=== PATIENT | male | born 1935 | race Caucasian/White ===

== ENCOUNTER 2023-02-15 12:27 | Emergency (ER) | payer OTHER ==
[2023-02-15] MEDS ORDERED: NA CHLORIDE 0.9% 1,000 ML ONE (13:05)
[2023-02-15] MEDS ORDERED: ONDANSETRON 4 MG/2 ML VIAL ONE ×2 (13:05→15:14)
[2023-02-15] MEDS ORDERED: MORPHINE 4 MG/ML SYR ONE (13:05)
[2023-02-15 13:15] LABS: Absolute Lymphocytes (CBC) 0.9 K/uL (0.7-4.9); Hematocrit 37.7 % (39.6-49.0); Lymphocytes % 7.4 % (15.3-44.8); MPV 7.2 fL (7.6-11.3); Platelets 308 thou/uL (152-406); RBC Red Blood Cell Count 3.88 M/uL (4.33-5.43)
[2023-02-15 13:34] LABS: Albumin 3.7 g/dL (3.4-5.0); Bilirubin Total 0.7 mg/dL (0.2-1.0); Potassium 3.4 mEq/L (3.5-5.1); Protein, Total 7.8 g/dL (6.4-8.2)
--- NOTE | 2023-02-15 14:02 | RAD REPORT ---
EXAM DESCRIPTION: CT - Abdomen Pelvis W Contrast - 02/15/2023 1:48 pm CLINICAL HISTORY: Abdominal pain COMPARISON: none. TECHNIQUE: Computed axial tomography of the abdomen pelvis was obtained. 100 cc Isovue-300 was admin istered intravenously. Oral contrast was not requested which limits evaluation of bowel and appendix All CT scans are performed using dose optimization technique as appropriate and may include automated exposure control or mA/KV adjustment according to patient size. FINDINGS: Gallstones. The gallbladder wall does not appear significantly thickened. The liver, spleen, pancreas, adrenal and kidneys appear unremarkable. There is no evidence of diverticulitis. Normal appendix. Marked osteoarthritis right hip IMPRESSION: No acute abnormality is displayed.
[2023-02-15 14:42] LABS: Blood Morphology Comment NOT SEEN (NOT SEEN); Platelet Estimate ADEQ; White Blood Cell Scan OK (OK)
[2023-02-15 15:17] LABS: Specific Gravity > 1.030 (1.005-1.030); Urine Bacteria None Seen /HPF (<20); Urine Bilirubin NEGATIVE (Negative); Urine Blood Negative (Negative); Urine Clarity Clear (Clear); Urine Color Light-Yellow (Yellow); Urine Glucose NEGATIVE (Negative); Urine Protein NEGATIVE (Negative); Urine RBC <5 /HPF (None Seen); Urine Urobilinogen Normal (Normal)
--- NOTE | 2023-02-15 15:29 | EDPHYS ---
Physician Documentation [facility] Name: Tyler Colon Age: 87 yrs Sex: Male : 1935 Arrival Date: 02/15/2023 Time: 12:27 Bed 6 Private MD: ED Physician Mir Daniel HPI: 02/15 13:48 This 87 yrs old Male presents to ER via Wheelchair with complaints of Abdominal Pain, rt Vomiting. 13:48 Patient presents to the ED with about 2 hours of generalized abdominal pain, nausea and rt vomiting. Patient states that this is similar to previous episodes of food poisoning. Pain is aching in nature, nonradiating. Denies aggravating or alleviating factors. Patient does state that he occasionally has issues with constipation, does not believe he is constipated currently.. Historical: - Allergies: 12:41 PENICILLINS; mb9 - Home Meds: 12:41 None [Active]; mb9 - PMHx: 12:41 None; mb9 - PSHx: 12:41 None; mb9 - Immunization history:: Adult Immunizations up to date. - Social history:: Smoking status: Patient denies any tobacco usage or history of. - Family history:: not pertinent. ROS: 13:48 Constitutional: Negative for fever, chills, and weight loss, Cardiovascular: Negative rt for chest pain, palpitations, and edema, Respiratory: Negative for shortness of breath, cough, wheezing, and pleuritic chest pain, MS/Extremity: Negative for injury and deformity, Skin: Negative for injury, rash, and discoloration, Neuro: Negative for headache, weakness, numbness, tingling, and seizure, Psych: Negative for depression, anxiety, suicide ideation, homicidal ideation, and hallucinations, 13:48 Abdomen/GI: Positive for abdominal pain, nausea and vomiting, Exam: 13:48 Constitutional: This is a well developed, well nourished patient who is awake, alert, rt and in no acute distress. Head/Face: Normocephalic, atraumatic. Chest/axilla: Normal chest wall appearance and motion. Nontender with no deformity. No lesions are appreciated. Cardiovascular: Regular rate and rhythm with a normal S1 and S2. No gallops, murmurs, or rubs. Normal PMI, no JVD. No pulse deficits. Respiratory: Lungs have equal breath sounds bilaterally, clear to auscultation and percussion. No rales, rhonchi or wheezes noted. No increased work of breathing, no retractions or nasal flaring. Skin: Warm, dry with normal turgor. Normal color with no rashes, no lesions, and no evidence of cellulitis. MS/ Extremity: Pulses equal, no cyanosis. Neurovascular intact. Full, normal range of motion. Neuro: Awake and alert, GCS 15, oriented to person, place, time, and situation. Cranial nerves II-XII grossly intact. Motor strength 5/5 in all extremities. Sensory grossly intact. Cerebellar exam normal. Normal gait. Psych: Awake, alert, with orientation to person, place and time. Behavior, mood, and affect are within normal limits. 13:48 Abdomen/GI: Mild tenderness diffusely without rebound, guarding, distention, Vital Signs: 12:40 BP 126 / 65; Pulse 65; Resp 18; Pulse Ox 100% on R/A; Weight 70.31 kg; Height 5 ft. 11 mb9 in. ; Pain 10/10; 13:14 BP 126 / 65; Pulse 73; Resp 18; Temp 97.6(TE); Pulse Ox 99% on R/A; Pain 9/10; tm6 14:49 BP 117 / 89; Pulse 67; Pulse Ox 97% on R/A; jl7 16:09 BP 118 / 78; Pulse 68; Resp 18; Temp 98; Pulse Ox 99% on R/A; ph 12:40 Body Mass Index 21.62 (70.31 kg, 180.34 cm) mb9 12:40 Pain Scale: Adult mb9 13:14 Pain Scale: Adult tm6 MDM: 12:42 Patient medically screened. rt 15:31 Differential diagnosis: Gastroenteritis, bowel obstruction, appendicitis. Data rt reviewed: vital signs, nurses notes, lab test result(s), radiologic studies. I considered the following discharge prescriptions or medication management in the emergency department Medications were administered in the Emergency Department. See MAR. Independent interpretation of the following test(s) in the Emergency Department CT Scan: My interpretation is No bowel obstruction some interpretation of CT scan images. Test considered but Not performed: Ultrasound Symptoms not consistent with symptomatic cholelithiasis, ultrasound is not getting. Counseling: I had a detailed discussion with the patient and/or guardian regarding the historical points, exam findings, and any diagnostic results supporting the discharge/admit diagnosis, lab results, radiology results, the need for outpatient follow up, to return to the emergency department if symptoms worsen or persist or if there are any questions or concerns that arise at home. Response to treatment: the patient's symptoms have markedly improved after treatment. 02/15 12:47 Order name: CBC with Diff; Complete Time: 15:03 rt 02/15 12:47 Order name: CMP; Complete Time: 13:48 rt 02/15 12:47 Order name: Lipase; Complete Time: 13:48 rt 02/15 12:47 Order name: Urinalysis w/ reflexes; Complete Time: 15:20 rt 02/15 13:36 Order name: CBC Smear Scan; Complete Time: 15:03 EDMS 02/15 12:47 Order name: CT Abd/Pelvis - IV Contrast Only; Complete Time: 14:04 rt 02/15 12:47 Order name: IV Saline Lock; Complete Time: 13:11 rt 02/15 12:47 Order name: Labs collected and sent; Complete Time: 13:11 rt Administered Medications: 13:11 Drug: NS 0.9% IV 1000 ml IV at 1 bolus Per protocol; 1000 mL bolus Route: IV; Rate: 1 ld1 bolus; Site: left antecubital; 15:48 Follow up: Response: No adverse reaction; IV Status: Completed infusion ph 13:11 Drug: Ondansetron IVP 4 mg IVP once; over 2 minutes Route: IVP; Site: left antecubital; ld1 15:48 Follow up: Response: No adverse reaction ph 13:11 Drug: morphine IVP or IV 4 mg IVP once over 4 mins Route: IVP; Infused Over: 4 mins; ld1 Site: left antecubital; 15:48 Follow up: Response: No adverse reaction ph 15:02 Drug: Ondansetron IVP 4 mg IVP once; over 2 minutes Route: IVP; Site: left antecubital; ph 15:47 Follow up: Response: No adverse reaction ph 15:44 Drug: morphine IVP or IV 2 mg IVP once over 4 mins Route: IVP; Infused Over: 4 mins; ph Site: left antecubital; 15:47 Follow up: Response: No adverse reaction ph 15:44 Drug: Dicyclomine IM 20 mg IM once Route: IM; Site: right gluteus; ph Disposition Summary: 02/15/23 15:28 Discharge Ordered Notes: Location: Home rt Problem: new rt Symptoms: have improved rt Condition: Stable rt Diagnosis - Abdominal pain, Generalized rt - Nausea with vomiting, unspecified rt Followup: rt - With: Private Physician - When: 2 - 3 days - Reason: Discharge Instructions: - Discharge Summary Sheet rt - Abdominal Pain, Adult rt - Nausea and Vomiting, Adult rt Forms: - Medication Reconciliation Form rt - Thank You Letter rt - Antibiotic Education rt - Prescription Opioid Use rt - Patient Portal Instructions rt - Leadership Thank You Letter rt Prescriptions: - ondansetron 4 mg Oral Tablet,disintegrating - take 1 tablet ORAL route every 6 hours as needed for nausea; 18 tablet; rt Refills: 0, Product Selection Permitted - Tramadol 50 mg Oral Tablet - take 1 tablet ORAL route every 8 hours as needed; 12 tablet; Refills: 0, rt Product Selection Permitted - dicyclomine 10 mg Oral capsule - take 1 capsule ORAL route 3 times per day; 18 capsule; Refills: 0, Product rt Selection Permitted Signatures: Dispatcher [employer] Marielle Crespo RN RN ph Roxie Anaya RN RN ld1 Adela Norman RN RN mb9 Mir Daniel MD MD rt
--- NOTE | 2023-02-15 15:29 | ER ---
Nurse's Notes [facility] Name: Tyler Colon Age: 87 yrs Sex: Male : 1935 Arrival Date: 02/15/2023 Time: 12:27 Bed 6 Private MD: Diagnosis: Abdominal pain, Generalized;Nausea with vomiting, unspecified Presentation: 02/15 12:40 Chief complaint: Patient states: "I've had abdominal pain all over for the past 2-3 mb9 hours. I've been nauseous and vomiting. I've had pain like this before and it feels like food poisoning or something". Coronavirus screen: Vaccine status: Patient reports receiving the 2nd dose of the covid vaccine. Ebola Screen: No symptoms or risks identified at this time. Initial Sepsis Screen: Does the patient meet any 2 criteria? No. Patient's initial sepsis screen is negative. Does the patient have a suspected source of infection? No. Patient's initial sepsis screen is negative. Risk Assessment: Do you want to hurt yourself or someone else? Patient reports no desire to harm self or others. Onset of symptoms was February 15, 2023. 12:40 Method Of Arrival: Wheelchair mb9 12:40 Acuity: GAVIN 3 mb9 Triage Assessment: 12:41 General: Appears in no apparent distress. Behavior is calm, cooperative. Pain: mb9 Complains of pain in abdomen Pain does not radiate. Pain currently is 10 out of 10 on a pain scale. Quality of pain is described as throbbing, Pain began suddenly, Is continuous. EENT: No signs and/or symptoms were reported regarding the EENT system. Neuro: Seay Agitation-Sedation Scale (RASS): 0 - Alert and Calm Level of Consciousness is awake, alert, obeys commands, Oriented to person, place, time, situation, Appropriate for age. Cardiovascular: Patient's skin is warm and dry. Respiratory: Airway is patent Respiratory effort is even, unlabored, Respiratory pattern is regular, symmetrical. GI: Abdomen is flat, non-distended, Reports nausea, vomiting. : No signs and/or symptoms were reported regarding the genitourinary system. Derm: Skin is pink, warm \\T\\ dry. Historical: - Allergies: 12:41 PENICILLINS; mb9 - Home Meds: 12:41 None [Active]; mb9 - PMHx: 12:41 None; mb9 - PSHx: 12:41 None; mb9 - Immunization history:: Adult Immunizations up to date. - Social history:: Smoking status: Patient denies any tobacco usage or history of. - Family history:: not pertinent. Screenin:34 [facility] ED Fall Risk Assessment (Adult) History of falling in the last 3 months, ph including since admission No falls in past 3 months (0 pts) Confusion or Disorientation No (0 pts) Intoxicated or Sedated No (0 pts) Impaired Gait No (0 pts) Mobility Assist Device Used No (0 pt) Altered Elimination No (0 pt) Score/Fall Risk Level 0 - 2 = Low Risk Oriented to surroundings, Maintained a safe environment, Provided non-skid footwear, Hourly rounding (assess needs \\T\\ fall precautionary measures) done. Abuse screen: Denies threats or abuse. Denies injuries from another. Nutritional screening: No deficits noted. Tuberculosis screening: No symptoms or risk factors identified. Assessment: 13:14 General: Appears in no apparent distress. comfortable, Behavior is calm, cooperative, tm6 appropriate for age. Pain: Complains of pain in abdomen Pain does not radiate. Pain currently is 9 out of 10 on a pain scale. Quality of pain is described as throbbing, Pain began 2 hours ago. Is continuous. Neuro: Level of Consciousness is awake, alert, obeys commands, Oriented to person, place, time, situation. Cardiovascular: Capillary refill < 3 seconds Patient's skin is warm and dry. Respiratory: Airway is patent Respiratory effort is even, unlabored. GI: Abdomen is flat, non-distended, Bowel sounds present X 4 quads. Abd is soft Abdomen is tender to palpation Reports lower abdominal pain, upper abdominal pain, nausea, vomiting. : No signs and/or symptoms were reported regarding the genitourinary system. EENT: No signs and/or symptoms were reported regarding the EENT system. Derm: No signs and/or symptoms reported regarding the dermatologic system. Musculoskeletal: No signs and/or symptoms reported regarding the musculoskeletal system. 14:49 Reassessment: Patient appears in no apparent distress at this time. No changes from jl7 previously documented assessment. Patient and/or family updated on plan of care and expected duration. Pain level reassessed. Patient is alert, oriented x 3, equal unlabored respirations, skin warm/dry/pink. Vital Signs: 12:40 BP 126 / 65; Pulse 65; Resp 18; Pulse Ox 100% on R/A; Weight 70.31 kg; Height 5 ft. 11 mb9 in. ; Pain 10/10; 13:14 BP 126 / 65; Pulse 73; Resp 18; Temp 97.6(TE); Pulse Ox 99% on R/A; Pain 9/10; tm6 14:49 BP 117 / 89; Pulse 67; Pulse Ox 97% on R/A; jl7 16:09 BP 118 / 78; Pulse 68; Resp 18; Temp 98; Pulse Ox 99% on R/A; ph 12:40 Body Mass Index 21.62 (70.31 kg, 180.34 cm) mb9 12:40 Pain Scale: Adult mb9 13:14 Pain Scale: Adult tm6 ED Course: 12:31 Patient arrived in ED. mg5 12:32 Mir Daniel MD is Attending Physician. rt 12:32 Arm band placed on Patient placed in an exam room, on a stretcher. ll1 12:35 Marielle Peng, TIM is Primary Nurse. ph 12:41 Triage completed. mb9 13:11 CBC with Diff Sent. ld1 13:11 CMP Sent. ld1 13:11 Lipase Sent. ld1 13:11 Inserted saline lock: 20 gauge in left antecubital area, using aseptic technique. Blood ld1 collected. 13:14 Patient has correct armband on for positive identification. Placed in gown. Bed in low tm6 position. Call light in reach. Side rails up X2. compliance monitor on. Pulse ox on. NIBP on. Door closed. Noise minimized. Warm blanket given. 13:14 No provider procedures requiring assistance completed. tm6 13:50 CT Abd/Pelvis - IV Contrast Only In Process Unspecified. EDMS 15:03 Urinalysis w/ reflexes Sent. ph 16:10 IV discontinued, intact, bleeding controlled, No redness/swelling at site. Pressure ph dressing applied. Administered Medications: 13:11 Drug: NS 0.9% IV 1000 ml IV at 1 bolus Per protocol; 1000 mL bolus Route: IV; Rate: 1 ld1 bolus; Site: left antecubital; 15:48 Follow up: Response: No adverse reaction; IV Status: Completed infusion ph 13:11 Drug: Ondansetron IVP 4 mg IVP once; over 2 minutes Route: IVP; Site: left antecubital; ld1 15:48 Follow up: Response: No adverse reaction ph 13:11 Drug: morphine IVP or IV 4 mg IVP once over 4 mins Route: IVP; Infused Over: 4 mins; ld1 Site: left antecubital; 15:48 Follow up: Response: No adverse reaction ph 15:02 Drug: Ondansetron IVP 4 mg IVP once; over 2 minutes Route: IVP; Site: left antecubital; ph 15:47 Follow up: Response: No adverse reaction ph 15:44 Drug: morphine IVP or IV 2 mg IVP once over 4 mins Route: IVP; Infused Over: 4 mins; ph Site: left antecubital; 15:47 Follow up: Response: No adverse reaction ph 15:44 Drug: Dicyclomine IM 20 mg IM once Route: IM; Site: right gluteus; ph Medication: 13:14 VIS not applicable for this client. tm6 Outcome: 15:28 Discharge ordered by . rt 16:09 Discharged to home ambulatory, ph 16:09 Condition: good 16:09 Discharge instructions given to patient, family, Instructed on discharge instructions, follow up and referral plans. medication usage, Demonstrated understanding of instructions, follow-up care, medications, Prescriptions given X 3, 16:10 Patient left the ED. ph Signatures: Dispatcher [employer] EDMarielle Mir RN RN ph Isabella Holloway RN RN jl7 Jonny Strickland RN RN ll1 Roxie Anaya RN RN ld1 Adela Norman RN RN mb9 Mir Daniel MD MD rt Amber Torres [facility] Demi Curran RN RN tm6
[2023-02-15] MEDS ORDERED: MORPHINE 2 MG/ML SYR ONE (15:48)
[2023-02-15] MEDS ORDERED: DICYCLOMINE HCL 20 MG/2 ML AMP IM ONE (15:48)
[2023-02-15 16:37] VITALS: BP 118/78; TEMP 98; O2SAT 99
== END 2023-02-15 16:10 | disposition home or self-care (01) ==
LOC: ER 12:27
DX: R10.84 Generalized abdominal pain (principal); R11.2 Nausea with vomiting, unspecified; Z88.0 Allergy status to penicillin
CPT/HCPCS: 96361; 85025; 81001; 36415; 83690; 80053; 74177; 96375; 96372; 96374; 99285; Q9967; J0500; J2270; J2405 ×2; J7030

== ENCOUNTER 2023-03-15 11:23 | Inpatient (IN) | payer OTHER ==
--- OUTSIDE RECORDS SUMMARY | 2023-03-15 14:30 | XMS REPORT | Continuity of Care Document ---
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
[2023-03-15 16:43] VITALS: BMI 28.3
[2023-03-15 18:05] LABS: Specific Gravity 1.015 (1.005-1.030); Urine Bacteria None Seen /HPF (<20); Urine Bilirubin NEGATIVE (Negative); Urine Blood Negative (Negative); Urine Clarity Clear (Clear); Urine Color Light-Yellow (Yellow); Urine Glucose NEGATIVE (Negative); Urine Protein TRACE (Negative); Urine RBC <5 /HPF (None Seen); Urine Urobilinogen Normal (Normal)
[2023-03-15] MEDS: APIXABAN 5 MG TABLET PO SCH (20:12)
[2023-03-15] MEDS: AMIODARONE HCL 200 MG TAB PO SCH (20:12)
[2023-03-15] MEDS: ENSURE HIGH PROTEIN 237 ML CAN PO SCH (20:12)
[2023-03-16 07:27] LABS: Absolute Lymphocytes (CBC) 0.9 K/uL (0.7-4.9); Hematocrit 28.9 % (39.6-49.0); Lymphocytes % 10.7 % (15.3-44.8); MCV 94.6 fL (80-100); MPV 6.5 fL (7.6-11.3); Platelets 603 thou/uL (152-406); RBC Red Blood Cell Count 3.06 M/uL (4.33-5.43)
[2023-03-16] MEDS ORDERED: ACETAMINOPHEN 500 MG TAB PO PRN (07:40)
[2023-03-16 07:48] LABS: Magnesium 2.1 mg/dL (1.6-2.4); Potassium 3.8 mEq/L (3.5-5.1); Prealbumin 15.9 mg/dL (20-40)
--- NOTE | 2023-03-16 11:39 | HP ---
Date of Admission: 03/15/2023 Time Of Service: 9 a.m. Chief Complaint: Had bowel problems and infection and became weak. History Of Present Illness: Mr. Colon is an 87-year-old right-handed patient, who came to [facility] in February with nausea, vomiting, abdominal pain. His CT scan of the abdomen a nd pelvis revealed small bowel obstruction with transition point in the mid pelvis. Blood work revea led sepsis. He was taken to the operating room, but developed atrial fibrillation with rapid ventric ular response and rate in the 160s. He received amiodarone drip, heparin, eventually switched to ora l amiodarone and monitored in the ICU. Also x-ray of the chest identified pneumonia and pleural effu bo. An ultrasound-guided thoracentesis was performed and eventually the patient had exploratory la parotomy with small bowel resection and reanastomosis. Complications following surgery included pneu mothorax and he had a left thoracotomy tube placed. He was followed by Cardiology, Surgery, Nephrolo gy, ID, and Respiratory Services. He was put on TPN following his surgery, but ultimately advanced t o a soft diet. Morphine pump peripherally was put for pain control. He received volume management e lectrolyte replacement for his hyponatremia and hypokalemia. Antibiotics included meropenem and vanc omycin and were completed. He had oxygen supplementation. He was monitored for white blood cell cou nt fevers. Wound Care followed him as well. He had physical therapy, occupational therapy ordered. In the meantime also, he had a PICC line placed for dressing and treating his abscess. He had eleva angelina liver function studies, aspiration pneumonia, and anemia. On baseline, the patient had dementia along with his multiple electrolyte abnormalities. Due to his progressive weakness and multiple medi gurdeep issues, he was determined to be functioning much below his baseline level and required aggressive physical, occupational, and speech therapy to help him return to his prior level of functioning. Gi truong his complicated medical condition, rehabilitation could not be safely or effectively performed at a lower level such as penitentiary and therefore, he was determined to be a more appropriate cand idate for aggressive inpatient rehabilitation. Past Medical History: Dementia, now atrial fibrillation, abdominal pain with nausea, vomiting. Past Surgical History: Small bowel resection with reanastomosis. Allergies: PENICILLIN. Medications: Tylenol 500 mg every 4 hours as needed, [place] 7.5/325 every 6 hours as needed, Eliquis 10 mg twice daily, amiodarone 200 mg twice daily, Ensure Enlive 237 mL twice daily, and Zofran 4 mg e very 4 hours as needed. Family History: Noncontributory. Social History: No alcohol, tobacco, or IV drug use. Review of Systems: Currently, no fevers or chills. Some difficulty with urination. Says he has to get up frequently at night to urinate and only urinates a small amount. He is not on Flomax and does not have a diagnosi s of prostate issues. Otherwise, no positives on a 10-point systems review. Laboratory Studies: White blood cell count 8.0, hemoglobin 9.8, platelets 603. His PTT on the 06 of March was 59.7. Chemistries; sodium 138, potassium 3.8, chloride 105, carbon dioxide 29, BUN 1 8, creatinine 0.89, glucose 95, calcium 7.9, magnesium 2.1, albumin 2.0, prealbumin 15.9. Urinalysis from the showed trace protein, otherwise unremarkable. COVID-19 test on the 15 of March is n egative. X-ray/imaging: X-ray on March 14, 2023, showed left chest tube has been removed. No pneumothorax n oted. Chest x-ray on March 13, no measurable pneumothorax seen on the left. Chest CT on 03/10 sh owed left-sided catheter placed through the left lower intercostal space, but does not enter the ches t cavity. Current Level Of Functioning: Currently for eating, setup assistance, oral hygiene setup assistance required, toileting moderate assistance, showering, and upper and lower body dressing, all moderate a ssistance. Rolling wrodr-ks-qdxa, wxyu-uq-xonzw, vqk-ax-tbiar moderate assistance. Ability to trans sylvia to toilet and shower moderate assistance. He ambulated 40 feet with a rolling walker with modera te assistance. Rehab And Medical Assessment And Plan: Mr. 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 His rehab impairment category is 06, neurologi gurdeep condition. His impairment group code is 03.8, neuromuscular disorder. Active comorbidities are atrial fibrillation, anemia, decreased mobility, dementia, deep vein thrombosis, hypocalcemia, hypoka lemia, hyponatremia, pleural effusion, pneumonia, and decreased physical functioning. Plan: 1.He will see physical, occupational, and speech therapy for 3.5 hours, 5 of 7 days. 2.We will have chest x-ray to evaluate interval clearing of pneumothorax and pneumonia. 3.We will have PSA to evaluate for prostate hypertrophy and other prostate issues. 4.We will continue for atrial fibrillation Eliquis 10 mg twice daily. 5.We will use melatonin and trazodone as appropriate for insomnia. 6.We will follow nutrition status and protein supplementation as needed. 7.We will have iron, ferrous sulfate, and Hemocyte Plus for his anemia. 8.Pain again will be managed with Tylenol and strong medications as needed. Comorbidities That Are Impacting His Rehabilitation: Given his atrial fibrillation, he is at high ri sk of stroke. He is on Eliquis high dose, but that puts him at risk of bleeding if there is any impa ct in any noncompressible site especially. Fall precautions adhered to at all times with a rolling w alker, gait belt, and for all transfers even only from bed to chair as well. In addition, there is p neumonia. There is slight baseline dementia. He may have acute on chronic encephalopathy and that w ill be addressed with speech therapy. Rehab Specific Plan: Mr. Colon will have 3.5 hours, 5 of 7 days of physical, occupational, and spee ch therapy to improve his ability to transfer from bed to chair to toilet and shower to modified inde pendence, to ambulate 250 feet with modified independence, can propel a wheelchair 250 feet with maximino fied independence, to go up and down 10 steps with modified independence, and to perform cognitive fu nctioning with modified independence. Mr. Colon has a good understanding of the process of admission to the inpatient rehabilitation [facility] and benefits he will derive from physical, occupational, and speech therapy. If need be, consult ations from the Pulmonary Service, ID Service, Hospitalist Service, and Cardiology Service will be co nsulted. Given his risk of further complications due to his complex medical condition and his need f or aggressive inpatient rehabilitation, the patient cannot be safely or effectively admitted to a [facility] facility such as penitentiary for his rehabilitation. Barriers To Discharge: Currently, he does have history of dementia with encephalopathy, but the phys ical therapy is working aggressively with him. Otherwise, the atrial fibrillation again is a barrier . He may need to continue high dose of anticoagulation despite risk of bleeding. Length Of Stay: About 14 days. Disposition: Home with family. Prognosis: Good. Rehabilitation Goals: 1.Independent upper and lower body dressing, toileting, showering, donning and doffing shoes. 2.Independently ambulate 250 feet with a rolling walker. 3.Independently propel a wheelchair 250 feet. 4.Independently go up and down 10 steps. 5.Independent with bilateral handrails. 6.Independently perform cognitive functioning and manage all medications without complications. 7.The above goals were reviewed with Mr. Colon and he is in agreement. By signing this document, I acknowledge I have performed a full physical examination on Mr. Colon no later than 24 hours after his admission to the inpatient rehabilitation facility and determined that he is able to tolerate the above course of treatment at an intensive level for a reasonable period o f time. A detailed individualized plan of care for him will be completed by hospital day 4 based on the preadmission screen, history and physical, and therapy evaluations. CHINTAN Voice ID: [id number]
[2023-03-16] MEDS: TAMSULOSIN 0.4 MG SR CAP PO SCH (19:55)
[2023-03-17] MEDS: METOPROLOL TAR 25 MG TAB PO SCH (05:26)
[2023-03-17] MEDS: FE SULF/FA/VIT B COMP & C TAB PO SCH (08:46)
[2023-03-17] MEDS: MEGESTROL 40 MG TAB PO SCH (16:28)
--- NOTE | 2023-03-17 21:22 | PN ---
Date of Progress Note: 03/17/2023 Time Of Service: 1:20 p.m. Subjective: Mr. Colon is resting comfortably in bed, in no significant distress, just finished a erapy session with speech pathology. He has no new complaints and is happy so far with progress. Review of Systems: No fevers, chills. No nausea, vomiting. No significant myalgias, arthralgias. No rash, headache, w eight change and his strength is improving. Physical Examination: Vital Signs: Blood pressure 113/53, pulse 68, respiratory rate 17, temperature 97.8, oxygen saturati on 93%. General: Mr. Colon is resting in bed. He is in no acute distress. HEENT: He appears normocephalic, atraumatic. Sclerae are anicteric. Oropharynx moist. Neck: Supple. Chest: Clear. Extremities: No significant edema or cyanosis in his extremities. Diffuse weakness in upper and low er extremities. Laboratory Studies: No new laboratory studies since yesterday. On yesterday, white blood cell count 8.0, hemoglobin 9.8, platelets 603. Sodium 138, potassium 3.8, chloride 105, carbon dioxide 29, BUN 18, creatinine 0.89, glucose 95, calcium 7.9, magnesium 2.1, albumin 2.0, prealbumin 15.9. Urinalys is from the 2nd is normal except for a trace protein. COVID-19 testing on the 2nd is negative. X-ray/imaging: No new x-rays or imaging. Medications: Extra Strength Tylenol 500 mg every 4 hours, [place] 7.5/325 every 6 hours as needed, ami odarone 200 mg twice daily, Eliquis 10 mg twice daily, Megace 400 mg twice daily. His big complaint actually was very poor appetite. He did not like the hospital food and I will have his daughter to b ring some food from home, but in the meantime, the Megace was started 400 mg twice daily to help with his appetite. Lopressor 25 mg daily, Hemocyte Plus 1 tablet daily with breakfast, Ensure Enlive 237 mL twice daily, Zofran 4 mg every 4 hours, Flomax 0.4 mg at bedtime. Progress Made With Physical And Occupational Therapy: Today, with physical therapy, he completed whe elchair mobilization, was able to propel his wheelchair over 100 feet and then 200 feet with standby assistance. He ambulated with a rolling walker 100 feet with minimum assistance. Ldafyq-bs-oyc new sfers with contact guard assistance. With occupational therapy, standby assistance for toilet hygien e. Oral hygiene also is standby assistance. Using a rolling walker to stand safely. His speech pat hologist worked with him with the goal of demonstrating temporal orientation with 100% accuracy and i nternal and external cues and demonstrate recall of 3 of 3 unrelated items after 5 minutes. Also, wo rk skills. Mr. Colon is making fair progress so far with physical, occupational, and speech therapy. The issue has been appetite and the Megace started to help improve his appetite and he again does not like hos pital food and we will have his daughter bring something from home that may be helpful. Assessment: Mr. Colon is an 87-year-old patient in the rehabilitation unit with critical illness my opathy and debility. He has atrial fibrillation, anemia, decreased mobility, poor appetite, deep vei n thrombosis, hypocalcemia, hypokalemia, hyponatremia, pleural effusion, pneumonia, has pleural effus ion. Plan: 1.We will continue with physical, occupational, and speech therapy for 3-1/2 hours, 5 out of 7 days. We will continue all current medications. 2.Continue Eliquis for atrial fibrillation; ferrous sulfate, Hemocyte Plus for anemia; Tylenol for p ain management. Comorbidities That Continue To Impact Rehabilitation: He is at risk of stroke. Due to atrial fibril lation, he is on Eliquis, but that puts him at bleeding risk and fall precautions to be adhered to at all times. cognitive impairment may make it difficult for him to make safe decisions and Speech Pathology is working with him aggressively on that. LB/MODL Voice ID: [id number] Report ID: [id number]
--- NOTE | 2023-03-18 13:33 | P.RH.PN ---
Estimated Length of Stay: 11 Expected Discharge Date: 03/26/23 Discharge Disposition Plan: Home Family Support: Yes Half-Way Goal: Mobility, Transfers, Self Care Vital Signs: Last Vital Signs Temp 97.5 F 03/18/23 08:00 Pulse 67 03/18/23 08:00 Resp 14 03/18/23 08:00 BP 98/50 L 03/18/23 08:00 Pulse Ox 92 03/18/23 08:00 Laboratory: Laboratory Last Values WBC 8.00 thou/uL (4.3-10.9) 03/16/23 07:17 RBC 3.06 M/uL (4.33-5.43) L 03/16/23 07:17 Hgb 9.8 g/dL (13.6-17.9) L 03/16/23 07:17 Hct 28.9 % (39.6-49.0) L 03/16/23 07:17 MCV 94.6 fL (80-100) 03/16/23 07:17 MCH 32.2 pg (27.0-35.0) 03/16/23 07:17 MCHC 34.0 g/dL (32.0-36.0) 03/16/23 07:17 RDW 13.5 % (12.1-15.2) 03/16/23 07:17 Plt Count 603 thou/uL (152-406) H 03/16/23 07:17 MPV 6.5 fL (7.6-11.3) L 03/16/23 07:17 Neutrophils % 75.1 % (41.7-73.7) H 03/16/23 07:17 Lymphocytes % 10.7 % (15.3-44.8) L 03/16/23 07:17 Monocytes % 7.5 % (3.3-12.3) 03/16/23 07:17 Eosinophils % 5.5 % (0-4.4) H 03/16/23 07:17 Basophils % 1.2 % (0-1.3) 03/16/23 07:17 Absolute Neutrophils 6.0 K/uL (1.8-8.0) 03/16/23 07:17 Absolute Lymphocytes 0.9 K/uL (0.7-4.9) 03/16/23 07:17 Absolute Monocytes 0.6 K/uL (0.1-1.3) 03/16/23 07:17 Absolute Eosinophils 0.4 K/uL (0-0.5) 03/16/23 07:17 Absolute Basophils 0.1 K/uL (0-0.5) 03/16/23 07:17 Sodium 138 mEq/L (136-145) 03/16/23 07:17 Potassium 3.8 mEq/L (3.5-5.1) 03/16/23 07:17 Chloride 105 mEq/L (98-107) 03/16/23 07:17 Carbon Dioxide 29 mEq/L (21-32) 03/16/23 07:17 Anion Gap 7.8 mEq/L (5.0-15.0) 03/16/23 07:17 BUN 18 mg/dL (7-18) 03/16/23 07:17 Creatinine 0.89 mg/dL (0.70-1.30) 03/16/23 07:17 Est GFR (CKD-EPI) 82 ml/min (=/>90) L 03/16/23 07:17 Glucose 95 mg/dL (74-106) 03/16/23 07:17 Calcium 7.9 mg/dL (8.5-10.1) L 03/16/23 07:17 Magnesium 2.1 mg/dL (1.6-2.4) 03/16/23 07:17 Albumin 2.0 g/dL (3.4-5.0) L 03/16/23 07:17 Prealbumin 15.9 mg/dL (20-40) L 03/16/23 07:17 Urine Color Light-yellow (Yellow) 03/15/23 17:30 Urine Clarity Clear (Clear) 03/15/23 17:30 Urine pH 7.0 (5.0-7.0) 03/15/23 17:30 Ur Specific [place] 1.015 (1.005-1.030) 03/15/23 17:30 Glucose (UA)(Auto) Negative (Negative) 03/15/23 17:30 Urine Ketones Negative (Negative) 03/15/23 17:30 Urine Blood Negative (Negative) 03/15/23 17:30 Urine Nitrite Negative (Negative) 03/15/23 17:30 Urine Bilirubin Negative (Negative) 03/15/23 17:30 Urine Urobilinogen Normal (Normal) 03/15/23 17:30 Ur Leukocyte Esterase Negative Jennifer/uL (Negative) 03/15/23 17:30 Urine RBC <5 /HPF (None Seen) 03/15/23 17:30 Urine WBC None seen /HPF (<5) 03/15/23 17:30 Ur Squamous Epith Cells None seen /HPF (None Seen) 03/15/23 17:30 Urine Bacteria None seen /HPF (<20) 03/15/23 17:30 Urine Culture Reflexed Not needed 03/15/23 17:30 Urine Total Protein Trace (Negative) H 03/15/23 17:30 SARS-CoV-2 Rap RNA(RT-PCR) Negative (NEGATIVE) 03/15/23 14:30 Weight: 145 lb Closed Surgical Incision Present: Yes Negative Pressure Wound Therapy Present: No Physician Update: Labs reviewed and are stable. He has a poor oral intake. SLUMS 19, met 2/4 speech goals. Fair abstract reasoning. Appears depressed with speech therapy. RW 10' with CGA. Doing well with ADLs. Up and down 5 steps. Summary: Patient's care plan and usp goals have been reviewed and revised as necessary. Please see the Rehabilitation Signature page for all necessary signatures.
[2023-03-19] MEDS: DULOXETINE 20 MG CAP PO SCH (16:58)
[2023-03-19] MEDS: GUAIFENESIN 600 MG SA TAB PO SCH (19:19)
[2023-03-19] MEDS: APIXABAN 5 MG TABLET PO SCH (19:19)
[2023-03-19] MEDS: JUVEN PACKET PO SCH (19:24)
[2023-03-19] MEDS: MOLNUPIRAVIR 200 MG PO SCH (20:00)
[2023-03-20] MEDS: DOCUSATE NA/SENNA CONC 1 TAB PO SCH (08:14)
[2023-03-20] MEDS: MULTIVITAMIN TAB PO SCH (08:14)
--- NOTE | 2023-03-21 22:43 | PN ---
Date of Progress Note: 03/21/2023 Time Of Service: 01:25 p.m. Subjective: Mr. Colon is resting in bed in between therapy sessions. He denies any complaints, say s he feels stronger, although he did have a big work out and slightly tired. Review of Systems: No fevers, chills, nausea, vomiting, myalgias, arthralgias, rash, headache, weight change. No psychi atric issues. Physical Examination: Vital Signs: Blood pressure 126/59, pulse 68, respiratory rate 16, temperature 99, oxygen saturation 96%. General: Mr. Colon is lying in bed. He is in no significant distress. HEENT: He is normocephalic, atraumatic. Sclerae anicteric. Oropharynx pink and moist. Neck: Supple. Chest: Clear. Heart: Regular. Extremities: No clubbing, cyanosis, or edema. Neuro: No focal neurological deficits. Laboratory Studies: No new laboratory studies. X-ray/imaging: No new x-rays or imaging. Medications: His medications have been reviewed and remain unchanged. He is on Eliquis 5 mg twice d aily for stroke and DVT risk reduction. He has Megace for poor appetite. His appetite is improved. Flomax for prostate hypertrophy with urinary retention. He does have a [place] on board along with Ty lenol for pain. Progress Made With Physical And Occupational Therapy: Today he zcwep-ki-rapwi transfers with a rolli ng walker done independently. He ambulated 300 feet, 250 feet, and 150 feet with standby assistance using a rolling walker. He is able to ascend and descend 15 steps with bilateral handrails with fany dby assistance. With occupational therapy, independent with urinal in the bed while supine and super vision for bathing, upper body dressing, and footwear, contact guard for lower body dressing. With s dar, used temporal orientation skills with 75% accuracy without cues. He was able to recall 1 of 4 unrelated pictures after 3 minutes on the first attempt, but 3 of 3 on a second attempt and 4 of 4 w ith cues recall. Mr. Colon is improving well with physical and occupational therapy, slightly a little slow with spee ch therapy, but still nonetheless making progress. Assessment And Plan: Mr. Colon is an 87-year-old patient in the rehabilitation unit with debility, atrial fibrillation, anemia, deep vein thrombosis, hypocalcemia, hypokalemia, hyponatremia, pleural e ffusion. Plan: 1.Continue physical, occupational, speech therapy for 3.5 hours, 5 of 7 days. 2.His comorbid medications are continued including Eliquis, ferrous sulfate, HemocytePlus, Tylenol, multivitamin, Zofran, Senokot, Flomax, amiodarone, and [place]. Comorbidities That Continue To Impact Rehabilitation: He is doing very well and his comorbidities do not negatively impact his rehabilitation. His appetite is improved with Megace. HONEY/MODRadha Voice ID: [id number] Report ID: [id number]
--- NOTE | 2023-03-22 07:34 | RAD REPORT ---
EXAM DESCRIPTION: Raquel Single View03/22/2023 6:32 am CLINICAL HISTORY: Cough COMPARISON: March 14, 2023 FINDINGS: Mild left lung opacities partially resolved. Small left pleural effusion. Right lung appears clear of acute infiltrate. Heart is normal size
--- NOTE | 2023-03-23 19:34 | PN ---
Date of Progress Note: 03/23/2023 Time Of Service: 1:20 p.m. Subjective: Mr. Colon is in his bed between therapy sessions. He is resting. Denies any complaint s. He is feeling much better about his exercises and he said the food today was very good. Review of Systems: No fevers or chills. No significant nausea. No vomiting. No myalgias. No arthralgias. No rash. No psychiatric issues or complaints. Objective: Vital Signs: Blood pressure 100/52, pulse 62, respiratory rate 18, temperature 97.4. Ox ygen saturation 95%. General: Mr. Colon is resting in bed. HEENT: He is normocephalic, atraumatic. His sclerae nonicteric. Oropharynx moist. Neck: Supple. Chest: Clear. Heart: Regular. Extremities: No clubbing, cyanosis, or edema detected. Laboratory Studies: No new laboratory studies. X-ray/imaging: Yesterday, a chest x-ray was done to rule out pneumonia. The patient did have some u pper airway rhonchi, but the chest x-ray did not show any evidence of a pneumonia. This study showed mild left lung opacity, which is partially resolved. Small left pleural effusion. Right lung appea red clear of infiltrate. Heart normal in size. Medications: Have been reviewed and remained unchanged. Progress Made With Physical And Occupational Therapy: Today with Physical Therapy, he ambulated 500 feet with a rolling walker independently, another 50 feet without an assistive device, he was slow, a bit unsteady, but independent. He is able to complete 15 steps up and down with bilateral handrails independently. With occupational therapy; independent with showering, toileting, upper body dressin g with footwear. Supervision for lower body dressing due to impaired standing. With speech, he did have the SLUMS test administered. He scored a 29/30 indicating normal cognitive functioning. On the BIMS score, he got a 15/15. Mr. Colon has done excellent with physical, occupational, and speech therapy and is ready to be disc harged home in the morning. He will have Home Health to continue. Assessment And Plan: Mr. Colon is an 87-year-old patient in the rehabilitation unit with debility, atrial fibrillation, anemia, deep venous thrombosis, hypocalcemia, hypokalemia, hyponatremia, pleural effusion. His comorbidities are improving very well and in his physical and occupational therapy, jefferson casper has done excellent along with speech therapy as well. Plan: 1.Continue with physical, occupational, and speech therapy. 2.for 3.5 hours, 5 of 7 days. 3.Patient will be discharged home again as noted in the morning and continue Home Health physical th erapy. 4.In the meantime, we will continue all of his comorbid condition medications including Eliquis, sylvia kirsten sulfate, HemocytePlus, Tylenol, Zofran, Senokot, Flomax, amiodarone, [place], multivitamin. Comorbidities That Continue To Impact Rehabilitation: His comorbidities are very stably managed. Hi s appetite is good. He is eating well and they are not impacting him in any negative way in terms of his ability to complete and do well with his physical and occupational therapy along with speech the rapy. HONEY/GREYL Voice ID: [id number] Report ID: [id number]
[2023-03-23] MEDS: HYDROCODONE/APAP 7.5/325 MG TAB PO PRN (20:47)
[2023-03-23] MEDS: ONDANSETRON 4 MG (ODT) TAB PO PRN (21:53)
[2023-03-23] MEDS ORDERED: guaiFENesin 100 MG/5 ML UCUP PO PRN (21:58)
[2023-03-24 05:25] LABS: Absolute Lymphocytes (CBC) 0.8 K/uL (0.7-4.9); Hematocrit 25.5 % (39.6-49.0); Lymphocytes % 10.4 % (15.3-44.8); MCV 92.7 fL (80-100); Platelets 394 thou/uL (152-406); RBC Red Blood Cell Count 2.75 M/uL (4.33-5.43)
[2023-03-24 05:35] LABS: Magnesium 1.9 mg/dL (1.6-2.4); Potassium 3.4 mEq/L (3.5-5.1); Prealbumin 11.5 mg/dL (20-40)
[2023-03-24] MEDS: SIMETHICONE 80 MG CHEWABLE TAB PO SCH (06:00)
[2023-03-24] MEDS ORDERED: SIMETHICONE 80 MG CHEWABLE TAB PO PRN (07:01)
[2023-03-24] MEDS: ENOXAPARIN 40 MG/0.4 ML SQ SCH (08:57)
--- NOTE | 2023-03-24 10:22 | RAD REPORT ---
EXAM DESCRIPTION: RAD - Chest Single View - 03/23/2023 10:38 pm CLINICAL HISTORY: The patient is 87 years old and is Male; r/o aspiration pneumonia TECHNIQUE: Frontal view of the chest. COMPARISON: No relevant prior studies available. FINDINGS: LUNGS: Patchy opacity throughout the left lung is noted. The right lung is clear. PLEURAL SPACE: Blunting left costophrenic angle is present. No pneumothorax. HEART: Unremarkable. No cardiomegaly. MEDIASTINUM: Unremarkable. Normal mediastinal contour. BONES/JOINTS: Unremarkable. No acute fracture. TUBES, LINES AND DEVICES: A left upper extremity PICC is present with the tip in the region of th e SVC. UPPER ABDOMEN: Unremarkable as visualized. IMPRESSION: Findings suggest left pleural effusion with associated atelectasis/developing infiltrate . Electronically signed by: Jaimie Guerrero MD 03/23/2023 11:17 PM [employer] Due to temporary technical issues with the PACS/Fluency reporting system, reports are being signed by the in house radiologist without review as a courtesy to ensure prompt reporting. The interpreting r adiologist is fully responsible for the content of the report.
--- NOTE | 2023-03-24 10:24 | RAD REPORT ---
EXAM DESCRIPTION: RAD - Abdomen 1 View (KUB) - 03/23/2023 10:38 pm CLINICAL HISTORY: The patient is 87 years old and is Male; abd pain TECHNIQUE: Frontal supine view of the abdomen/pelvis. COMPARISON: No relevant prior studies available. FINDINGS: LOWER THORAX: Left lower lobe atelectasis/scarring is present. GASTROINTESTINAL TRACT: Gaseous distention of the bowel is present. Postsurgical change about the right abdomen is noted. Minimal stool is present throughout the colon. Distal air is noted. BONES/JOINTS: Degenerative change specifically of the right hip is present. No acute fracture. IMPRESSION: A few prominent air-filled small bowel loops within the central abdomen without overt ob struction. Electronically signed by: Jaimie Guerrero MD 03/23/2023 11:19 PM [employer] Due to temporary technical issues with the PACS/Fluency reporting system, reports are being signed by the in house radiologist without review as a courtesy to ensure prompt reporting. The interpreting r adiologist is fully responsible for the content of the report.
[2023-03-24] MEDS: NIRMATRELVIR/RITONAVIR TABLET PO SCH (10:56)
--- NOTE | 2023-03-24 22:58 | PN ---
Date of Progress Note: 03/24/2023 Time Of Service: 1:25 p.m. Subjective: Mr. Colon is resting in bed. He did have some more cough. He is also positive for COV ID-19. He was given incentive spirometry device, which he was working with, once shown was put up to 1.5 L and he was able to get to around 1 L. He has no additional complaints aside from which medica tion for COVID-19 he will be taking and plan was for discharge today, but will be held as his grandda dano is unsure of all of the developments and wants more information, and goal will be discussed wi th her tomorrow. Review of Systems: No fevers, chills. Mild nausea with no vomiting. No myalgias, arthralgias, rash, psychiatric compla ints. Physical Examination: Vital Signs: Blood pressure 115/55, pulse of 59, respiratory rate 16, temperature 97.6, oxygen satur ation 92%. General: Mr. Colon is lying in bed. He is using incentive spirometry. HEENT: He is normocephalic, atraumatic. Lungs: He has mild decreased breath sounds bilaterally. Abdomen: Soft. Extremities: No significant edema or cyanosis. Laboratory Studies: White blood cell count 7.3, hemoglobin 8.8, platelets 394. Sodium 135, potassiu m 3.6, chloride 104, carbon dioxide 27, BUN 14, creatinine 0.75, glucose 134. Calcium 7.9, albumin 2 .0, prealbumin 11.5. Again, on today, his COVID-19 test became positive. X-ray/imaging: KUB and chest x-ray were done yesterday and no bowel obstruction noted on the KUB. C hest x-ray today did show some pleural effusion. The patient again was encouraged to use incentive s pirometry. The study also mentioned a possible developing infiltrate. Progress Made With Physical And Occupational Therapy: Today, with physical therapy, he was able to a mbulate 30 feet twice with a rolling walker with supervision and did complete static standing balance training, working on improving tandem stance. He did ambulate 30 feet twice. With occupational the rapy, toilet hygiene, standby assistance. He was able to do oral hygiene standing at sink with a rol ling walker for about 4 minutes. He was independent with bed mobility. Ambulated 5 feet and then re ported some dizziness. His blood pressure was 114/73 while upright and 110/56 after sitting. With s peech therapy, he did demonstrate temporal orientation skills with 100% accuracy without cues. 3/3 u nrelated pictures recalled after 5 minutes and 3/3 recalled after 5 minutes on second attempt. Used working memory to recall 4 units with 100% accuracy without cues. Mr. Colon is making great progress with speech therapy, and slightly less efficient progress with hi s physical and occupational therapy. Still significantly debilitated, requiring moderate and sometim es more assistance for mobilization and ambulation. Furthermore, he is somewhat limited by his COVID -19 positivity. Plan may be for him to have an extended stay to help improve his condition. Assessment: Mr. Colon is an 87-year-old patient in the rehabilitation unit with debility. He has a trial fibrillation, anemia, deep vein thrombosis, hypocalcemia, hypokalemia, hyponatremia, pleural ef fusion and again COVID-19 positivity. Plan: 1.Continue with physical, occupational, and speech therapy for 3.5 hours, 5 of 7 days. 2.Plan to discharge home, but the patient may require more careful monitoring and medication adminis tration, and may be available at home. May consider intermediate. 3.Continue with the comorbid condition medications, including the Eliquis, Hemocyte, ferrous sulfate , Tylenol, Zofran, Senokot, Flomax, amiodarone, [place], multivitamin. Comorbidities That Continue To Impact His Rehabilitation: Currently, his COVID-19 positivity is impa cting whether or not he can be able to go home on Paxlovid as there is interaction with that and Eliq uis. He, however, needs DVT prophylaxis and prophylaxis for stroke risk reduction. Currently, he is switched to Lovenox 40 mg subcutaneously twice daily, which does not interact with the Paxlovid that he is now receiving; however, going home, his Lovenox may be difficult to continue because shots will be required, and this will be again discussed with the patient's grandreema higginster tomorrow. HONEY/FUNMI Voice ID: [id number] Report ID: [id number]
[2023-03-25] MEDS: NA CHLORIDE 0.9% 1,000 ML IV SCH (11:28)
--- NOTE | 2023-03-25 13:33 | P.RH.PN ---
Estimated Length of Stay: 11 Expected Discharge Date: 03/26/23 Discharge Disposition Plan: Home Family Support: Yes Alf Goal: Mobility, Transfers, Self Care Vital Signs: Last Vital Signs Temp 97.2 F 03/25/23 08:00 Pulse 78 03/25/23 10:51 Resp 14 03/25/23 08:00 BP 80/46 L 03/25/23 10:51 Pulse Ox 96 03/25/23 08:00 Laboratory: Laboratory Last Values WBC 7.30 thou/uL (4.3-10.9) 03/24/23 04:55 RBC 2.75 M/uL (4.33-5.43) L 03/24/23 04:55 Hgb 8.8 g/dL (13.6-17.9) L 03/24/23 04:55 Hct 25.5 % (39.6-49.0) L 03/24/23 04:55 MCV 92.7 fL (80-100) 03/24/23 04:55 MCH 31.9 pg (27.0-35.0) 03/24/23 04:55 MCHC 34.4 g/dL (32.0-36.0) 03/24/23 04:55 RDW 13.5 % (12.1-15.2) 03/24/23 04:55 Plt Count 394 thou/uL (152-406) 03/24/23 04:55 MPV 7.0 fL (7.6-11.3) L 03/24/23 04:55 Neutrophils % 82.1 % (41.7-73.7) H 03/24/23 04:55 Lymphocytes % 10.4 % (15.3-44.8) L 03/24/23 04:55 Monocytes % 6.4 % (3.3-12.3) 03/24/23 04:55 Eosinophils % 0.7 % (0-4.4) 03/24/23 04:55 Basophils % 0.4 % (0-1.3) 03/24/23 04:55 Absolute Neutrophils 6.0 K/uL (1.8-8.0) 03/24/23 04:55 Absolute Lymphocytes 0.8 K/uL (0.7-4.9) 03/24/23 04:55 Absolute Monocytes 0.5 K/uL (0.1-1.3) 03/24/23 04:55 Absolute Eosinophils 0.1 K/uL (0-0.5) 03/24/23 04:55 Absolute Basophils 0.0 K/uL (0-0.5) 03/24/23 04:55 Sodium 135 mEq/L (136-145) L 03/24/23 04:55 Potassium 3.4 mEq/L (3.5-5.1) L 03/24/23 04:55 Chloride 104 mEq/L (98-107) 03/24/23 04:55 Carbon Dioxide 27 mEq/L (21-32) 03/24/23 04:55 Anion Gap 7.4 mEq/L (5.0-15.0) 03/24/23 04:55 BUN 14 mg/dL (7-18) 03/24/23 04:55 Creatinine 0.75 mg/dL (0.70-1.30) 03/24/23 04:55 Est GFR (CKD-EPI) 87 ml/min (=/>90) L 03/24/23 04:55 Glucose 134 mg/dL (74-106) H 03/24/23 04:55 Calcium 7.9 mg/dL (8.5-10.1) L 03/24/23 04:55 Magnesium 1.9 mg/dL (1.6-2.4) 03/24/23 04:55 Albumin 2.0 g/dL (3.4-5.0) L 03/24/23 04:55 Prealbumin 11.5 mg/dL (20-40) L 03/24/23 04:55 Urine Color Light-yellow (Yellow) 03/15/23 17:30 Urine Clarity Clear (Clear) 03/15/23 17:30 Urine pH 7.0 (5.0-7.0) 03/15/23 17:30 Ur Specific [place] 1.015 (1.005-1.030) 03/15/23 17:30 Glucose (UA)(Auto) Negative (Negative) 03/15/23 17:30 Urine Ketones Negative (Negative) 03/15/23 17:30 Urine Blood Negative (Negative) 03/15/23 17:30 Urine Nitrite Negative (Negative) 03/15/23 17:30 Urine Bilirubin Negative (Negative) 03/15/23 17:30 Urine Urobilinogen Normal (Normal) 03/15/23 17:30 Ur Leukocyte Esterase Negative Jennifer/uL (Negative) 03/15/23 17:30 Urine RBC <5 /HPF (None Seen) 03/15/23 17:30 Urine WBC None seen /HPF (<5) 03/15/23 17:30 Ur Squamous Epith Cells None seen /HPF (None Seen) 03/15/23 17:30 Urine Bacteria None seen /HPF (<20) 03/15/23 17:30 Urine Culture Reflexed Not needed 03/15/23 17:30 Urine Total Protein Trace (Negative) H 03/15/23 17:30 SARS-CoV-2 Rap RNA(RT-PCR) Positive (NEGATIVE) A 03/24/23 00:00 SARS-CoV-2 Ag (Rapid) Cancelled 03/23/23 22:10 Weight: 144 lb 8 oz Wound Present: No Closed Surgical Incision Present: Yes Negative Pressure Wound Therapy Present: No Physician Update: Labs reviewed and are stable. He is anemic with low prealbumin treated with iron and extra protein. Stage I sacrum pressure. Chest tube and abdominal trocar wounds and healing well. He needs to continue Paxlovid to treat acute COVID-19 infection with episodes of hypotension. His Paxlovid will be complete on Tuesday and be discharged. SLUMS improved to 29. Independent for bed mobility, 750' walking 15 steps with independence yesterday. Stronger upper extremity. Bathing independent. Summary: Patient's care plan and nursing home goals have been reviewed and revised as necessary. Please see the Rehabilitation Signature page for all necessary signatures.
[2023-03-25] MEDS ORDERED: METOPROLOL TARTRATE 5 MG/5 ML INJ IV PRN (13:49)
[2023-03-26] MEDS: FERROUS SULFATE 325 MG TAB PO SCH (08:16)
[2023-03-26] MEDS: DOCUSATE NA/SENNA CONC 1 TAB PO SCH (19:51)
[2023-03-27 07:36] LABS: Absolute Lymphocytes (CBC) 1.2 K/uL (0.7-4.9); Hematocrit 27.1 % (39.6-49.0); Lymphocytes % 18.9 % (15.3-44.8); MCV 92.1 fL (80-100); MPV 7.3 fL (7.6-11.3); Platelets 378 thou/uL (152-406); RBC Red Blood Cell Count 2.94 M/uL (4.33-5.43)
[2023-03-27 07:45] LABS: Potassium 3.3 mEq/L (3.5-5.1)
[2023-03-27] MEDS: NA CHLORIDE 0.9% 1,000 ML IV SCH (11:28)
[2023-03-27] MEDS: POTASSIUM CL SA 10 MEQ TAB PO ONE (12:32)
[2023-03-28] MEDS: METOPROLOL TAR 25 MG TAB PO SCH (05:01)
[2023-03-28 06:33] LABS: Absolute Lymphocytes (CBC) 1.3 K/uL (0.7-4.9); Hematocrit 25.4 % (39.6-49.0); Lymphocytes % 17.6 % (15.3-44.8); MCV 91.8 fL (80-100); MPV 6.9 fL (7.6-11.3); Platelets 356 thou/uL (152-406); RBC Red Blood Cell Count 2.77 M/uL (4.33-5.43)
[2023-03-28 06:54] LABS: Magnesium 1.9 mg/dL (1.6-2.4); Potassium 3.6 mEq/L (3.5-5.1); Prealbumin 11.3 mg/dL (20-40)
[2023-03-28] MEDS: POTASSIUM CL SA 10 MEQ TAB PO SCH (08:28)
[2023-03-28 08:48] LABS: White Blood Cell Scan OK (OK)
[2023-03-28 08:49] LABS: Blood Morphology Comment NOT SEEN (NOT SEEN); Platelet Estimate ADEQ
[2023-03-29] MEDS: AMIODARONE HCL 200 MG TAB PO SCH (07:40)
[2023-03-29] MEDS: APIXABAN 5 MG TABLET PO SCH (07:40)
[2023-03-29 08:32] VITALS: BP 130/60; TEMP 98
[2023-03-30] MEDS ORDERED: AMIODARONE HCL 200 MG TAB PO SCH (08:00)
--- NOTE | 2023-04-03 23:20 | DS ---
Date of Discharge: 03/29/2023 Discharge Diagnoses: Neuromuscular disorder, critical illness myopathy, atrial fibrillation, anemia, decreased mobility, dementia, deep vein thrombosis, hypocalcemia, hypokalemia, hyponatremia, pleural effusion, pneumonia, decreased physical functioning. Discharge Condition: Good. Discharge Activity: Weightbearing as tolerated. Allergies: PENICILLIN. Medications: Ensure Enlive 237 mL twice daily, Flomax 0.4 mg at bedtime, multivitamin, Centrum 1 tab let daily, Lopressor 12.5 mg daily, Megace 400 mg twice daily, Hemocyte Plus 1 tablet with breakfast, Cymbalta 20 mg daily, Senokot-S 2 twice daily, Eliquis 5 mg twice daily, amiodarone 100 mg twice jason ly. Laboratory Studies: White blood cell count 7.9, hemoglobin 8.7, platelets 356. Sodium 138, potassiu m 3.6, chloride 110, carbon dioxide 24, BUN 10, creatinine 0.75, prealbumin 11.3, albumin 2.0, magnes ium 1.9, calcium 7.8. Urinalysis normal except trace protein. He did have a positive cocaine test o n the 24 of March after a negative one on the 15 March 2023. Synopsis Of Events That Led To Admission: Mr. Colon is an 87-year-old patient who came to [facility] in February with nausea, vomiting, abdominal pain. CT scan of the abdomen and pelvis show ed a small bowel obstruction. He did have a transition point in the mid pelvis. Blood work revealed sepsis. He was taken to the operating room, but developed atrial fibrillation with rapid ventricula r response and rate up in the 160s. He received amiodarone drip, heparin per protocol, switched to o ral amiodarone and monitored in the ICU. In addition, he had pneumonia and pleural effusion. He did receive an ultrasound-guided thoracentesis and exploratory laparotomy with small bowel resection and reanastomosis. Postoperative course complicated by pneumothorax and he had a left thoracotomy tube placed. He was followed by Cardiology service, Surgery service, Nephrology, Infectious Disease, and Respiratory Service. He was put on TPN after surgery, but advanced to a soft diet. He did have a mo rphine pump placed for pain and . He received volume management. Electrolytes replacing for hyponatremia and hypokalemia. Antibiotics, he received meropenem, vancomycin per ID Service. He also had oxygen supplementation. His wound was addressed as well. The PICC line placed for address ing his multiple antibiotic needs. Given his complicated medical condition, he did require inpatient rehabilitation as he receives physical and occupational therapy. Hospital Course: Throughout hospitalization, he did very well as noted. His hemoglobin and hematocr it were monitored and remained stable. White blood cell count remained normal. His urinalysis was u nremarkable. He become positive for COVID-19 on the , and was addressed with antiviral medicatio n Paxlovid per protocol which he received from 03/24/2023 to 03/28/2023, put on isolation while he wa s treated and 10 days from the date that he had the positive test. Progress Made With Physical, Occupational Therapy, And Speech Therapy: By discharge, he was independ ent with cognition, comprehension, expression, intelligibility. Improved his SLUMS score from 19 to 29 and his BIMS score from 12 to 15. Requiring occupational therapy by discharge, independent with e ating, tub and shower transfer, toilet transfer, his bathing independent, upper body dressing, lower body dressing, all dependent. Toileting independent. He did meet all of his short-term and long-ter m goals and was discharged home with continuing therapy with all durable medical equipment needs were met. Regarding his physical therapy by discharge, he was able to walk 10 feet without assistive dev ice and 3 steps up and down with a total of 1 handrail and did multiple sets of exercises independent ly and meeting his short-term and long-term goals and is discharged home to continue with physical th erayesenia. Followup: With primary care physician as scheduled. HONEY/FUNMI Voice ID: [id number] Report ID: [id number]
== END 2023-03-29 12:15 | disposition home health service (06) | DRG 91 ==
LOC: 5TH 14:28
PROVIDERS: ADMIT Psychiatry & Neurology Neurology with Special Qualifications in Child Neurology; ATTEND Psychiatry & Neurology Neurology with Special Qualifications in Child Neurology
DX: G72.81 Critical illness myopathy (principal); U07.1 COVID-19; E87.1 Hypo-osmolality and hyponatremia; J90 Pleural effusion, not elsewhere classified; I48.91 Unspecified atrial fibrillation; D64.9 Anemia, unspecified; F03.90 Unspecified dementia, unspecified severity, without behavioral disturbance, psychotic disturbance, mood disturbance, and anxiety; E83.51 Hypocalcemia; E87.6 Hypokalemia; R53.81 Other malaise
CPT/HCPCS: 36415; 36569; 71045; 74018; 80048; 81001; 82040; 83735; 84134; 85025; 87086; 87088; 87635; 92523; 97110; 97112; 97116; 97129; 97163; 97165; 97530; 97542; J1650; J7030; Q0162

== ENCOUNTER → 2023-04-11 | Emergency (ER) | payer OTHER ==
[~2023-04-11] MED LIST: CEPHALEXIN 250 MG CAP ONE
--- OUTSIDE RECORDS SUMMARY | 2023-04-11 13:19 | XMS REPORT | Continuity of Care Document ---
Author Name Unknown Address [address] [place] [address] [address] [place] [address] [facility] thconnect Address [address] [facility] [address] [place] [address] Care Team Providers Care Barrel Lapper Name Role Phone Pattie-Mbayo_A_AH Attending Clinician Unavailable Pattie-Mbayo_A_AH Admitting Clinician Unavailable Payers Payer Name Policy Type Policy Number Effective Date Expirati on Date Source [facility] (MEDICARE REPLACEMENT/ADVANT AGE - HMO) [id number] 2019 00:00:00 Encounters Start Date/Time End Date/Time Encounter Type Admission Type Attending Clinicians Care Facility Care Department Encounter ID Source 2019-05-02 07:22:00 2019-05-02 07:22:00 Outpatient Pattie-Mbayo _A_AH VFP P [id number] [facility] e
--- NOTE | 2023-04-11 15:31 | RAD REPORT ---
EXAM DESCRIPTION: CT - [id number] - 04/11/2023 2:11 pm CLINICAL HISTORY: fall COMPARISON: No comparisons TECHNIQUE: Axial thin cut noncontrast CT images of the head were obtained. Axial thin cut noncontrast CT images of the cervical spine were obtained. Multiplanar reformatted images were generated and reviewed. All CT scans are performed using dose optimization technique as appropriate and may include automated exposure control or mA/KV adjustment according to patient size. FINDINGS: CT HEAD WITHOUT CONTRAST: No acute hemorrhage, hydrocephalus or extra-axial collection is identified.No areas of brain edema or midline shift. The paranasal sinuses and mastoids are clear.The calvarium is intact. CT CERVICAL SPINE WITHOUT CONTRAST: No fracture or subluxation. Moderate degenerative changes. No prevertebral soft tissues swelling is i dentified. IMPRESSION: No acute traumatic intracranial or cervical spine findings.
--- NOTE | 2023-04-11 18:43 | ER ---
Nurse's Notes [facility] Name: Tyler Colon Age: 87 yrs Sex: Male : 1935 Arrival Date: 04/11/2023 Time: 13:12 Bed 10 Private MD: Diagnosis: Fall on same level, unspecified;Laceration without foreign body of right ear Presentation: 04/11 13:43 Chief complaint: Patient states: Pt fell on Tuesday at 0200. Pt c/o right ear tl4 laceration. Coronavirus screen: Vaccine status: Patient reports receiving the 2nd dose of the covid vaccine. Ebola Screen: Patient negative for fever greater than or equal to 101.5 degrees Fahrenheit, and additional compatible Ebola Virus Disease symptoms Patient denies exposure to infectious person. Patient denies travel to an Ebola-affected area in the 21 days before illness onset. No symptoms or risks identified at this time. Initial Sepsis Screen: Does the patient meet any 2 criteria? No. Patient's initial sepsis screen is negative. Does the patient have a suspected source of infection? No. Patient's initial sepsis screen is negative. Risk Assessment: Do you want to hurt yourself or someone else? Patient reports no desire to harm self or others. Onset of symptoms was April 10, 2023. 13:43 Method Of Arrival: Ambulatory tl4 13:43 Acuity: GAVIN 3 tl4 Triage Assessment: 13:47 General: Appears in no apparent distress. Behavior is calm, cooperative. Pain: Denies tl4 pain. EENT: Reports ear laceration. Neuro: No deficits noted. Cardiovascular: No deficits noted. Denies chest pain, diaphoresis, lightheadedness, palpitations. Respiratory: No deficits noted. Denies cough, shortness of breath. GI: No deficits noted. No signs and/or symptoms were reported involving the gastrointestinal system. : No deficits noted. No signs and/or symptoms were reported regarding the genitourinary system. Derm:. Historical: - Allergies: 13:47 PENICILLINS; tl4 - PMHx: 13:47 Anemia; Cholelithiasis; mild dementia; tl4 - Immunization history:: Adult Immunizations unknown. - Social history:: Smoking status: Patient denies any tobacco usage or history of. Screenin:25 [place] ED Fall Risk Assessment (Adult) Score/Fall Risk Level 3 or more points = High nj1 Risk Oriented to surroundings, Maintained a safe environment, Educated pt \T\ family on fall prevention, incl call for assistance when getting out of bed, Assessed \T\ reinforced patient's understanding of fall precautions, Hourly rounding (assess needs \T\ fall precautionary measures) done, Used ambulatory aids as needed (educated on \T\ assisted with), Remained w/in arm's length of patient and in sight while toileting, Offered frequent toileting (1:1 observation), Remained with patient while ambulating, Utilized family, sitter, or virtual staff registered nurse as indicated. Abuse screen: Denies threats or abuse. Denies injuries from another. Nutritional screening: No deficits noted. Tuberculosis screening: No symptoms or risk factors identified. Assessment: 13:50 General: Appears in no apparent distress. comfortable, Behavior is calm, cooperative, nj1 appropriate for age. 14:23 Pain: Denies pain. Neuro: Level of Consciousness is awake, alert, obeys commands, nj1 Oriented to person, place, time, situation. Cardiovascular: Patient's skin is warm and dry. Respiratory: Airway is patent Respiratory effort is even, unlabored. Injury Description: Laceration sustained to right ear is 2.6 to 7.5 cm long, not bleeding. 15:16 Reassessment: Patient appears in no apparent distress at this time. Pt resting, nj1 sleeping. 16:30 Reassessment: Patient appears in no apparent distress at this time. Pt resting/sleeping.nj1 17:36 Reassessment: Patient appears in no apparent distress at this time. Pt resting/sleeping.nj1 17:50 Reassessment: Dr Villa enters ED, taken to patients room. Given Betadine as requested. nj1 Family at bedside. Vital Signs: 13:43 BP 104 / 49; Pulse 83; Resp 18; Temp 98.2(O); Pulse Ox 93% on R/A; Weight 63.5 kg; tl4 Height 5 ft. 11 in. ; Pain 0/10; 13:43 Body Mass Index 19.53 (63.50 kg, 180.34 cm) tl4 13:43 Pain Scale: Adult tl4 ED Course: 13:16 Patient arrived in ED. mg5 13:22 Don Anaya DO is Attending Physician. ms3 13:43 Henrry Doyle is Primary Nurse. tl4 13:47 Triage completed. tl4 13:47 Arm band placed on left wrist. tl4 13:50 Patient has correct armband on for positive identification. Bed in low position. Call nj1 light in reach. Side rails up X 1. Adult w/ patient. 13:50 Provided Education on: call light, fall precautions. nj1 14:12 CT Head C Spine In Process Unspecified. EDMS 18:43 Stephanie Villa MD is Referral Physician. ms3 18:49 No provider procedures requiring assistance completed. Patient did not have IV access cm10 during this emergency room visit. Administered Medications: 18:49 Drug: Cephalexin PO 500 mg PO once Route: PO; cm10 18:49 Follow up: Response: Medication administered at discharge. cm10 Medication: 18:49 VIS not applicable for this client. cm10 Outcome: 18:43 Discharge ordered by . ms3 18:49 Discharged to home ambulatory, with family, cm10 18:49 Condition: good 18:49 Discharge instructions given to patient, family, public policy coordinator, Instructed on discharge instructions, follow up and referral plans. medication usage, wound care, Demonstrated understanding of instructions, follow-up care, medications, wound care, Prescriptions given X 1, 18:50 Patient left the ED. cm10 Signatures: Dispatcher [employer] EDDC Don Anaya DO DO ms3 Brittny Robin, RN RN nj1 Lacey Mayfield RN RN cm10 Amber Torres mg5 Henrry Doyle tl4 Corrections: (The following items were deleted from the chart) 14:24 13:50 General: Appears in no apparent distress. comfortable, Behavior is calm, nj1 cooperative, appropriate for age, nj1
--- NOTE | 2023-04-11 18:44 | EDPHYS ---
Physician Documentation [facility] Name: Tyler Colon Age: 87 yrs Sex: Male : 1935 Arrival Date: 04/11/2023 Time: 13:12 Bed 10 Private MD: ED Physician Don Anaya HPI: 04/11 15:18 This 87 yrs old Male presents to ER via Ambulatory with complaints of Fall Injury, ms3 Laceration To Head - Ear. 15:18 87-year-old male with past medical history of anemia, cholelithiasis, dementia presents ms3 to the emergency department with his daughter status post fall on Tuesday at 2 AM. Patient sustained laceration to his right ear. Patient denies pain at this time. Patient denies any nausea or vomiting. Historical: - Allergies: 13:47 PENICILLINS; tl4 - PMHx: 13:47 Anemia; Cholelithiasis; mild dementia; tl4 - Immunization history:: Adult Immunizations unknown. - Social history:: Smoking status: Patient denies any tobacco usage or history of. ROS: 15:18 Constitutional: Negative for fever, and chills. Neck: Negative for injury, pain, and ms3 swelling, Cardiovascular: Negative for chest pain, and palpitations. Respiratory: Negative for shortness of breath, cough, wheezing, and pleuritic chest pain, Abdomen/GI: Negative for abdominal pain, nausea, vomiting, diarrhea, and constipation, MS/Extremity: Negative for injury and deformity, 15:18 ENT: Positive for Laceration right ear, Exam: 15:18 Constitutional: This is a well developed, well nourished patient who is awake, alert, ms3 and in no acute distress. Head/Face: Normocephalic, atraumatic. Neck: Trachea midline, no cervical lymphadenopathy. Supple, full range of motion without nuchal rigidity, or vertebral point tenderness. No Meningismus. Chest/axilla: Normal chest wall appearance and motion. Nontender with no deformity. Cardiovascular: Regular rate and rhythm with a normal S1 and S2. No gallops, murmurs, or rubs. Normal PMI, no JVD. No pulse deficits. Respiratory: Lungs have equal breath sounds bilaterally, clear to auscultation and percussion. No rales, rhonchi or wheezes noted. No increased work of breathing, no retractions or nasal flaring. 15:18 ENT: External ear(s): laceration, that is irregular, that is jagged, pinna of right ear, Vital Signs: 13:43 BP 104 / 49; Pulse 83; Resp 18; Temp 98.2(O); Pulse Ox 93% on R/A; Weight 63.5 kg; tl4 Height 5 ft. 11 in. ; Pain 0/10; 13:43 Body Mass Index 19.53 (63.50 kg, 180.34 cm) tl4 13:43 Pain Scale: Adult tl4 MDM: 13:48 Patient medically screened. ms3 15:18 Differential diagnosis: closed head injury, fracture, Right ear laceration. ms3 18:48 Data reviewed: vital signs, nurses notes, radiologic studies, and as a result, I will ms3 discharge patient. Management of patient was discussed with the following: Sieve Grader Tender: Dr Villa for repair of right ear. I considered the following discharge prescriptions or medication management in the emergency department Medications were administered in the Emergency Department. See MAR. Historians other than the Patient: Daughter/Son: Daughter. Counseling: I had a detailed discussion with the patient and/or guardian regarding the historical points, exam findings, and any diagnostic results supporting the discharge/admit diagnosis, the need for outpatient follow up, to return to the emergency department if symptoms worsen or persist or if there are any questions or concerns that arise at home. ED course: Dr. Vlila completed laceration repair in the emergency department. Patient to go home on Keflex 500 mg 3 times daily. Patient to follow-up with Dr. Villa in 5 to 6 days. Patient stands agrees with plan. All questions were answered. Return precautions discussed include worsening symptoms, or any other concerns.. 04/11 13:47 Order name: CT Head C Spine; Complete Time: 15:42 ms3 Administered Medications: 18:49 Drug: Cephalexin PO 500 mg PO once Route: PO; cm10 18:49 Follow up: Response: Medication administered at discharge. cm10 Disposition Summary: 04/11/23 18:43 Discharge Ordered Notes: Location: Home ms3 Condition: Stable ms3 Diagnosis - Fall on same level, unspecified ms3 - Laceration without foreign body of right ear ms3 Followup: ms3 - With: Stephanie Villa MD - When: 5 - 6 days - Reason: Recheck today's complaints Discharge Instructions: - Discharge Summary Sheet ms3 - Facial Laceration ms3 - Fall Prevention in the Home, Adult, [id number] ms3 Forms: - Medication Reconciliation Form ms3 - Thank You Letter ms3 - Antibiotic Education ms3 - Prescription Opioid Use ms3 - Patient Portal Instructions ms3 - Leadership Thank You Letter ms3 Prescriptions: - Cephalexin 500 mg Oral Capsule - take 1 capsule ORAL route every 8 hours for 10 days; 30 capsule; Refills: 0, ms3 Product Selection Permitted Signatures: Dispatcher [employer] EDMS Don Anaya DO DO ms3 Lacey Mayfield RN RN cm10 Henrry Doyle 4
[2023-04-11 23:03] VITALS: BP 104/49; TEMP 98.2; O2SAT 93
--- NOTE | 2023-04-13 23:00 | ER ---
Date of Visit: 04/11/2023 Chief Complaint: Right ear pain. History Of Present Illness: Patient is an 87-year-old male who presented to the emergency room after sustaining a through and through laceration of his right ear. I was consulted for repair of the com plex laceration. Currently, he denies pain at this time, and bleeding has subsided. Past Medical History: Anemia, cholelithiasis, mild dementia. Past Surgical History: Reports none. Allergies: PENICILLIN. Social History: Denies tobacco, alcohol, illicit drugs. Medication List: None available. Review of Systems: Ears: Traumatic laceration of the right ear with minimal bleeding and minimal pain. No otorrhea or hearing loss. Nose: Negative for rhinorrhea, postnasal drip, epistaxis. Throat: Negative for pain, dysphagia, swelling. Neck: Negative for swelling or airway difficulty. Physical Examination: General: Well developed, well nourished, in no acute distress. He is awake and alert. Head: Atraumatic, normocephalic. Right Auricle: Patient has a large through and through defect laceration of the right ear with expos ed cartilage extending from the mid helical rim through the antihelix and down to the conchal bowl. Nasal: Normal. Moist mucosa midline septum. Oral Cavity: Exhibits moist oral mucosa. Midline uvula. After obtaining consent, patient was placed into a left lateral decubitus position and I infiltrated approximately 8 mL of 2% lidocaine with 1:100,000 epinephrine around the laceration site. I reapprox imated the cartilage with 5-0 Monocryl in a simple interrupted fashion followed by dermal and epiderm al layered closure utilizing 5-0 Monocryl in a simple interrupted and continuous running fashion. Th e ear was repaired after cleaning the area with Betadine swabs. A Xeroform and Telfa dressing were p laced over the repair site and taped to his head and cheek. Total closure length measured 7.5 cm. Diagnosis: Complex right ear through and through laceration with exposed cartilage, status post comp iliana layered repair. Recommendations: 1.Patient is to keep the dressing intact and follow up in 1-2 weeks for a [facility]. 2.Take p.r.n. ibuprofen and Tylenol for pain. 3.Patient will start oral antibiotics, cephalexin 500 mg t.i.d. for 1 week. He tolerated the procedure well. Thank you for this most interesting consultation. ELKE/FUNMI Voice ID: [id number] Report ID: [id number]
== END ==
LOC: ER 13:12
DX: S01.311A Laceration without foreign body of right ear, initial encounter (principal); W18.30XA Fall on same level, unspecified, initial encounter; Z88.0 Allergy status to penicillin
CPT/HCPCS: 70450; 72125